=== PATIENT | female | born 1985 | race Caucasian/White ===

== ENCOUNTER 2017-02-11 11:21 | Emergency (ER) | payer BC ==
[2017-02-11] MEDS ORDERED: FOLI1TAB2 (11:33)
[2017-02-11] MEDS ORDERED: VENL75CA47 (11:33)
[2017-02-11] MEDS ORDERED: NAPR500T6 (11:33)
[2017-02-11] MEDS ORDERED: IBUP600T26 PO (11:33)
[2017-02-11] MEDS ORDERED: ARAV20TA (11:33)
[2017-02-11] MEDS ORDERED: PERC5TAB6 PO (13:09)
[2017-02-11] MEDS ORDERED: PERCOCET 5MG/325MG TAB PO ONE (13:15)
[2017-02-11 13:21] VITALS: BP 151/90
== END 2017-02-11 13:32 | disposition home or self-care (01) ==
LOC: M ED 13:00
DX: M06.841 Other specified rheumatoid arthritis, right hand (principal); Z87.891 Personal history of nicotine dependence; Z79.899 Other long term (current) drug therapy

== ENCOUNTER → 2017-06-17 | Outpatient (REF) | payer BC ==
[~2017-06-17] MED LIST: ARAV20TA; FOLI1TAB4; IBUP-1022 PO; NAPR500T6; PERC5TAB12 PO; VENL75CA47
[2017-06-17 16:08] LABS: BASO # 0.1 10^3/uL (0.0-0.2); BASO % 1.4 % (0.0-1.0); EOS # 0.5 10^3/uL (0.0-0.50); EOS % 12.3 % (0.0-3.0); LYMPH # 1.3 10^3/uL (1.5-6.5); LYMPH % 34.9 % (24.0-44.0); MEAN CORPUSCULAR HEMOGLOBIN 31.9 pg (27.0-33.0); MEAN CORPUSCULAR HGB CONC 32.7 g/dl (32.0-36.5); MEAN CORPUSCULAR VOLUME 97.6 fl (80.0-96.0); MONO # 0.5 10^3/uL (0.0-0.8); MONO % 12.3 % (0.0-5.0); NEUTROPHILS # 1.4 10^3/uL (1.8-7.7); NEUTROPHILS % 39.1 % (36.0-66.0); PLATELET COUNT, AUTOMATED 242 10^3/uL (150-450); RED CELL DISTRIBUTION WIDTH 12.6 % (11.5-14.5); WHITE BLOOD COUNT 3.7 10^3/uL (4.0-10.0)
[2017-06-17 16:57] LABS: ALBUMIN/GLOBULIN RATIO 1.14 (1.00-1.93); ALKALINE PHOSPHATASE 69 U/L (45-117); ALT/SGPT 65 U/L (12-78); ANION GAP 7 MEQ/L (8-16); AST/SGOT 77 U/L (15-37); BILIRUBIN,TOTAL 0.4 MG/DL (0.2-1.0); BLOOD UREA NITROGEN 7 MG/DL (7-18); CARBON DIOXIDE LEVEL 28 MEQ/L (21-32); CHLORIDE LEVEL 106 MEQ/L (98-107); CHOLESTEROL LEVEL 253 MG/DL (<200); CREATININE FOR GFR 0.58 MG/DL (0.55-1.02); FREE T4 0.72 NG/DL (0.76-1.46); GLOMERULAR FILTRATION RATE > 60.0 (>60); GLUCOSE, FASTING 76 MG/DL (70-105); POTASSIUM SERUM 4.3 MEQ/L (3.5-5.1); SODIUM LEVEL 141 MEQ/L (136-145); TOTAL PROTEIN 7.5 GM/DL (6.4-8.2); TRIGLYCERIDES LEVEL 47 MG/DL (<150)
== END ==
LOC: M SFHCSACK 09:33
PROVIDERS: ATTEND Physician Assistant
DX: F41.9 Anxiety disorder, unspecified (principal); Z13.29 Encounter for screening for other suspected endocrine disorder; Z13.220 Encounter for screening for lipoid disorders; Z13.21 Encounter for screening for nutritional disorder

== ENCOUNTER → 2017-07-29 | Outpatient (REF) | payer BC ==
[2017-07-29 14:15] LABS: BANDS 1 % (< 11); EOSINOPHILS 6 % (0-5)
[2017-07-29 14:22] LABS: FOLATE 19.4 NG/ML
[2017-07-29 15:07] LABS: BASO # 0.1 10^3/uL (0.0-0.2); BASO % 1.1 % (0.0-1.0); EOS # 0.4 10^3/uL (0.0-0.50); EOS % 6.1 % (0.0-3.0); IMMATURE GRANULOCYTE % 0.3 % (0-0); LYMPH # 1.4 10^3/uL (1.5-4.5); LYMPH % 22.9 % (24.0-44.0); MONO # 0.7 10^3/uL (0.0-0.8); MONO % 10.6 % (0.0-5.0); NEUTROPHILS # 3.7 10^3/uL (1.8-7.7); WHITE BLOOD COUNT 6.2 10^3/uL (4.0-10.0)
== END ==
LOC: M LAB REF 13:21
PROVIDERS: ATTEND Internal Medicine Medical Oncology
DX: D72.819 Decreased white blood cell count, unspecified (principal)

== ENCOUNTER 2017-12-26 01:36 | Emergency (ER) | payer MEDICAID, BC, OTHER ==
[2017-12-26] MEDS: MORPHINE 4 MG/ML 1ML VIAL/SYRINGE (J2270) IV (02:31)
[2017-12-26] MEDS: ONDANSETRON 4MG/2ML VIAL (J2405) IV (02:32)
[2017-12-26] MEDS: METHOCARBAMOL 1,000 MG/10 ML VIAL (J2800) IV (02:39)
[2017-12-26] MEDS: KETOROLAC 30 MG/ML VIAL (J1885) IV (05:06)
[2017-12-26] MEDS ORDERED: NORCO 5/325MG TABLET (BULK FOR ED) PO (06:45)
== END 2017-12-26 06:38 | disposition home or self-care (01) ==
LOC: M ED 01:36
DX: M54.41 Lumbago with sciatica, right side (principal); M06.9 Rheumatoid arthritis, unspecified; F33.9 Major depressive disorder, recurrent, unspecified; F41.9 Anxiety disorder, unspecified; F10.20 Alcohol dependence, uncomplicated; Z79.899 Other long term (current) drug therapy
CPT/HCPCS: J2270

== ENCOUNTER 2020-07-22 13:46 | Emergency (ER) | payer MEDICAID, OTHER ==
[~2020-07-22] VITALS: Ht 165.1 cm; Wt 54.5 kg
[~2020-07-22 13:46] MED LIST changes: +CYCL5TAB PO; +FOLI1TAB11; -FOLI1TAB4; +HYDR-3715 PO; +KETO10TAB PO; -VENL75CA47; +VENL75CA47 PO
[2020-07-22] MEDS ORDERED: LORazepam 2 MG TAB PO PRN (14:00)
[2020-07-22 14:26] LABS: BASO # 0.1 10^3/uL (0.0-0.2); EOS # 0.3 10^3/uL (0.0-0.5); EOS % 3.9 % (0.0-3.0); HEMATOCRIT 37.1 % (36.0-47.0); HEMOGLOBIN 12.4 g/dl (12.0-15.5); LYMPH # 1.1 10^3/uL (1.5-5.0); MEAN CORPUSCULAR HEMOGLOBIN 32.4 pg (27.0-33.0); MEAN CORPUSCULAR HGB CONC 33.4 g/dl (32.0-36.5); MEAN CORPUSCULAR VOLUME 96.9 fl (80.0-96.0); MONO # 0.8 10^3/uL (0.0-0.8); MONO % 11.6 % (0.0-5.0); NEUTROPHILS # 4.5 10^3/uL (1.5-8.5); NEUTROPHILS % 67.1 % (36.0-66.0); PLATELET COUNT, AUTOMATED 174 10^3/uL (150-450); RED BLOOD COUNT 3.83 10^6/uL (4.00-5.40); WHITE BLOOD COUNT 6.7 10^3/uL (4.0-10.0)
[2020-07-22 14:57] LABS: HCG, SERUM QUALITATIVE NEGATIVE (NEGATIVE)
[2020-07-22 15:02] LABS: ACETAMINOPHEN LEVEL < 2.0 UG/ML (10.0-30.0); ALBUMIN 3.5 GM/DL (3.2-5.2); ALT/SGPT 142 U/L (12-78); BILIRUBIN,DIRECT 0.1 MG/DL (0.0-0.2); BILIRUBIN,TOTAL 0.4 MG/DL (0.2-1.0); BLOOD UREA NITROGEN 3 MG/DL (7-18); CALCIUM LEVEL 8.7 MG/DL (8.5-10.1); CARBON DIOXIDE LEVEL 26 MEQ/L (21-32); CHLORIDE LEVEL 102 MEQ/L (98-107); CPK CREATINE PHOSPHOKINASE 85 U/L (26-192); GLOMERULAR FILTRATION RATE > 60.0 (>60); GLUCOSE, FASTING 84 MG/DL (70-100); POTASSIUM SERUM 3.7 MEQ/L (3.5-5.1); SALICYLATE LEVEL 2.1 MG/DL (5.0-30.0); SODIUM LEVEL 137 MEQ/L (136-145); THYROID STIMULATING HORMONE 0.913 uIU/ML (0.358-3.740); TOTAL PROTEIN 8.2 GM/DL (6.4-8.2)
[2020-07-22] MEDS ORDERED: MULTIVITAMIN -ADULT INJECTION 10 ML, THIAMINE INJection 100 MG, FOLIC ACID 1 MG in NS 1... IV ONE (16:00)
[2020-07-22 16:02] LABS: AMPHETAMINES LEVEL URINE NEGATIVE (NEGATIVE); BARBITURATES URINE NEGATIVE (NEGATIVE); BENZODIAZEPINES URINE NEGATIVE (NEGATIVE); CANNABINOIDS URINE POSITIVE (NEGATIVE); COCAINE METABOLITE URINE NEGATIVE (NEGATIVE); METHADONE URINE NEGATIVE (NEGATIVE); OPIATES URINE NEGATIVE (NEGATIVE); PHENCYCLIDINE URINE NEGATIVE (NEGATIVE)
[2020-07-22 16:30] VITALS: BP 113/67
[2020-07-22] MEDS ORDERED: OXAZ10CA3 PO ×2 (16:40→16:59)
[2020-07-22] MEDS ORDERED: ONDA4TAB6 PO (16:40)
[2020-07-22] MEDS ORDERED: OXAZEPAM 10 MG CAP PO ONE (16:45)
[2020-07-22] MEDS ORDERED: THIAMINE 100 MG TAB PO SCH (21:00)
[2020-07-22] MEDS ORDERED: HUMI40KI2 SC (23:57)
[2020-07-23] MEDS ORDERED: MULTIVITAMINS/MINERALS THERAP 1 TAB PO SCH (09:00)
[2020-07-23] MEDS ORDERED: FOLIC ACID 1 MG TAB PO SCH (09:00)
--- NOTE | 2020-07-23 10:17 | ECGEPIP ---
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
== END 2020-07-22 16:59 | disposition home or self-care (01) ==
LOC: M ED 13:46
DX: F10.229 Alcohol dependence with intoxication, unspecified (principal); F17.218 Nicotine dependence, cigarettes, with other nicotine-induced disorders; F12.10 Cannabis abuse, uncomplicated
CPT/HCPCS: 36415; 80048; 80076; 80307; 82550; 84443; 84703; 85025; 93005; 96360; 99284; G0480; J3411

== ENCOUNTER 2020-07-22 21:24 | Inpatient (IN) | payer OTHER ==
[~2020-07-22] VITALS: Ht 165.1 cm; Wt 52.9 kg
[2020-07-22] MEDS: NICOTINE 14 MG/24 HR TRANSDERMAL TD SCH (01:32)
[~2020-07-22 21:24] MED LIST changes: +ONDA4TAB6 PO; +OXAZ10CA3 PO
[2020-07-22] MEDS ORDERED: LORazepam 2 MG/ML VIAL IV STA (21:40)
[2020-07-22] MEDS ORDERED: LORazepam 2 MG/ML VIAL As Ordered ONE (21:42)
[2020-07-22] MEDS ORDERED: LORazepam 2 MG TAB PO PRN (21:45)
[2020-07-22] MEDS ORDERED: NS 1,000 ML IV ONE (21:45)
[2020-07-22] MEDS ORDERED: ONDANSETRON 4MG/2ML VIAL IV ONE (21:45)
[2020-07-22 21:59] LABS: HEMATOCRIT 37.9 % (36.0-47.0); HEMOGLOBIN 12.7 g/dl (12.0-15.5); MEAN CORPUSCULAR HEMOGLOBIN 32.6 pg (27.0-33.0); MEAN CORPUSCULAR HGB CONC 33.5 g/dl (32.0-36.5); MEAN CORPUSCULAR VOLUME 97.4 fl (80.0-96.0); PLATELET COUNT, AUTOMATED 196 10^3/uL (150-450); RED BLOOD COUNT 3.89 10^6/uL (4.00-5.40); WHITE BLOOD COUNT 5.2 10^3/uL (4.0-10.0)
[2020-07-22 22:34] LABS: ACETAMINOPHEN LEVEL < 2.0 UG/ML (10.0-30.0); ALBUMIN 3.4 GM/DL (3.2-5.2); ALT/SGPT 137 U/L (12-78); BILIRUBIN,DIRECT < 0.1 MG/DL (0.0-0.2); BILIRUBIN,TOTAL 0.4 MG/DL (0.2-1.0); BLOOD UREA NITROGEN 6 MG/DL (7-18); CALCIUM LEVEL 8.9 MG/DL (8.5-10.1); CARBON DIOXIDE LEVEL 26 MEQ/L (21-32); CHLORIDE LEVEL 110 MEQ/L (98-107); CPK CREATINE PHOSPHOKINASE 75 U/L (26-192); CREATININE FOR GFR 0.65 MG/DL (0.55-1.30); ETHYL ALCOHOL (ETHANOL) 0.101 % (0.000-0.010); GLOMERULAR FILTRATION RATE > 60.0 (>60); GLUCOSE, FASTING 111 MG/DL (70-100); MAGNESIUM LEVEL 1.9 MG/DL (1.8-2.4); POTASSIUM SERUM 3.6 MEQ/L (3.5-5.1); SALICYLATE LEVEL < 1.7 MG/DL (5.0-30.0); SODIUM LEVEL 143 MEQ/L (136-145); TOTAL PROTEIN 8.2 GM/DL (6.4-8.2)
[2020-07-22] MEDS ORDERED: MULTIVITAMIN -ADULT INJECTION 10 ML, THIAMINE INJection 100 MG, FOLIC ACID 1 MG in NS 1... IV ONE (23:30)
[2020-07-22] MEDS ORDERED: flumazeniL 0.5 MG/5 ML VIAL IV PRN (23:30)
[2020-07-22] MEDS ORDERED: ONDANSETRON 4MG/2ML VIAL IV PRN (23:45)
[2020-07-22] MEDS ORDERED: HUMI40KI2 SC (23:57)
--- NOTE | 2020-07-23 00:08 | HPEPDOC ---
[facility] Medical History & Physical Date of Admission Jul 22, 2020 Date of Service: Jul 22, 2020 History and Physical CHIEF COMPLAINT: Alcohol withdrawal HISTORY OF PRESENT ILLNESS: 35-year-old female with history of alcohol abuse, 13 beers a day and some shot, alcohol withdrawal, tobacco abuse one pack a day of smoking, rheumatoid arthritis , signed out AGAINST MEDICAL ADVICE from the emergency room earlier today, now returns with "shakes" last drink at 1 PM today . She complains of tremors twitches, disorientation and seeing stars, nausea, vomiting 2 episodes, slept for 2 hours at home and awakened with worsening t remors. . She denies any paresthesias or creepy crawly sensations .No fever, chills, abdominal pain, no cough or shortness of breath. No history of alcohol withdrawal seizures. no prior attempts for alcohol rehabilitation. Hospice was called to admit for alcohol withdrawal. 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 13 beers and some shots a day. Tobacco abuse one pack a day. FAMILY HISTORY: Mother, rheumatoid arthritis, hypertension, age 54. Father alive and healthy. No medical problems, age 60 ALLERGIES: Please see below. REVIEW OF SYSTEMS: Positive findings on HPI. 10 point review of system otherwise negative HOME MEDICATIONS: Please see below. PHYSICAL EXAMINATION: VITAL SIGNS: See below GENERAL APPEARANCE: Anicteric, no jaundice, awake, alert, oriented, answering questions appropriately. No respiratory distress. No conversational dyspnea. No use of respiratory accessory muscles HEENT: Anicteric, no jaundice. Pupils equally round, reactive to light accommodation. Extra ocular muscles intact. No cervical lymphadenopathy, thyromegaly or jugular venous distention CARDIOVASCULAR: S1, S2, sinus rhythm, no murmurs, rubs or gallops LUNGS: Air entry is equal bilaterally. No kyphoscoliosis. No adventitious breath sounds clear to auscultation bilaterally ABDOMEN: Positive bowel sounds 4 quadrants, soft, nontender, nondistended. No hepatosplenomegaly. No rebound or guarding EXTREMITIES: No cyanosis, clubbing or pitting edema NEUROLOGICAL: Tremulous. LABORATORY DATA: See below. MICROBIOLOGY: Please see below. ASSESSMENT/PLAN: Alcohol withdrawal -Telemetry monitoring. Admit as an inpatient for 2 midnights. 1 dose IV Valium 2 mg in the ER . Serax 30 mg every 6 as needed for withdrawal symptoms. Monitor for seizure activity. No signs of aspiration at this time. May continue on a regular diet, multivitamin, thiamine and folic acid supplements. Banana bag 1 L tonight Alcohol abuse and dependence -Outpatient alcohol rehabilitation Tobacco abuse -No documented history of COPD or emphysema. Nicotine patch. 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 Continue on Effexor Sciatica/chronic low back pain -When necessary pain meds. PCP to refer her to pain management. DVT prophylaxis. Lovenox Diet regular CODE STATUS full code Vital Signs Vital Signs Date Time Temp Pulse Resp B/P (MAP) Pulse Ox O2 Delivery O2 Flow Rate FiO2 07/22/20 23:15 133/87 (102) 07/22/20 23:09 94 18 98 Room Air 07/22/20 21:25 96.8 Laboratory Data Labs 24H Laboratory Tests 2 07/22/20 21:47: Nucleated Red Blood Cells % (auto) 0.0, Anion Gap 7L, Glomerular Filtration Rate > 60.0, Calcium Level 8.9, Magnesium Level 1.9, Total Bilirubin 0.4, Direct Bilirubin < 0.1, Aspartate Amino Transf (AST/SGOT) 251H, Alanine Aminotransferase (ALT/SGPT) 137H, Alkaline Phosphatase 138H, Total Creatine Kin ase 75, Total Protein 8.2, Albumin 3.4, Albumin/Globulin Ratio 0.7L, Thyroid Stimulating Hormone (TSH) 1.410, Salicylates Level < 1.7L, Acetaminophen Level < 2.0L, Ethyl Alcohol Level 0.101H CBC/BMP Laboratory Tests 07/22/20 21:47 Home Medications Scheduled Adalimumab (Humira Pen) 40 Mg/0.8 Ml Pen.ij.kit, 40 MG SC ASDIRECTED Venlafaxine HCl (Venlafaxine HCl ER) 75 Mg Capcr, 75 MG PO DAILY Allergies Coded Allergies: No Known Allergies (Unverified , 02/11/17) A-FIB/CHADSVASC A-FIB History Current/History of A-Fib/PAF?: No Current PO Anticoag Therapy: No Age/Risk Factor Scoring CHADSVASC: CHADSVASC Response (Comments) Value Age Risk Factor Age < 65 years old 0 Gender Risk Factor Female 1 Hx of CHF No 0 Hx of HTN No 0 Hx of Stroke/TIA/or VTE No 0 Hx of Diabetes No 0 Hx of Vascular Disease No 0 Total 1 Treatment Treatment ordered: NONE BRITTANY VILLAFUERTE MD Jul 22, 2020 23:39
[2020-07-23] MEDS ORDERED: diazePAM 10MG/2ML SYRINGE (J3360 PER 5MG) IV ONE (00:15)
[2020-07-23] MEDS ORDERED: NICOTINE 14 MG/24 HR TRANSDERMAL TD ONE (01:00)
[2020-07-23] MEDS ORDERED: ENOXAPARIN 40MG/0.4ML SYRINGE (J1650 PER 10MG) SC ONE (01:00)
[2020-07-23] MEDS: OXAZEPAM 15 MG CAP PO PRN ×3 (04:13→17:57)
[2020-07-23 05:05] LABS: AMPHETAMINES LEVEL URINE NEGATIVE (NEGATIVE); BARBITURATES URINE NEGATIVE (NEGATIVE); BENZODIAZEPINES URINE NEGATIVE (NEGATIVE); CANNABINOIDS URINE POSITIVE (NEGATIVE); COCAINE METABOLITE URINE NEGATIVE (NEGATIVE); METHADONE URINE NEGATIVE (NEGATIVE); OPIATES URINE NEGATIVE (NEGATIVE); PHENCYCLIDINE URINE NEGATIVE (NEGATIVE)
[2020-07-23 07:25] LABS: HEMATOCRIT 34.9 % (36.0-47.0); HEMOGLOBIN 11.4 g/dl (12.0-15.5); MEAN CORPUSCULAR HEMOGLOBIN 32.7 pg (27.0-33.0); MEAN CORPUSCULAR HGB CONC 32.7 g/dl (32.0-36.5); PLATELET COUNT, AUTOMATED 146 10^3/uL (150-450); RED BLOOD COUNT 3.49 10^6/uL (4.00-5.40); WHITE BLOOD COUNT 5.7 10^3/uL (4.0-10.0)
[2020-07-23 07:42] LABS: BLOOD UREA NITROGEN 6 MG/DL (7-18); CALCIUM LEVEL 7.9 MG/DL (8.5-10.1); CARBON DIOXIDE LEVEL 26 MEQ/L (21-32); CHLORIDE LEVEL 104 MEQ/L (98-107); CREATININE FOR GFR 0.48 MG/DL (0.55-1.30); GLOMERULAR FILTRATION RATE > 60.0 (>60); GLUCOSE, FASTING 72 MG/DL (70-100); POTASSIUM SERUM 3.3 MEQ/L (3.5-5.1); SODIUM LEVEL 137 MEQ/L (136-145)
[2020-07-23] MEDS: NICOTINE 14 MG/24 HR TRANSDERMAL TD SCH (09:00)
[2020-07-23 09:30] VITALS: BP 157/98
[2020-07-23] MEDS: FOLIC ACID 1 MG TAB PO SCH (11:08)
[2020-07-23] MEDS: MULTIVITAMINS/MINERALS THERAP 1 TAB PO SCH (11:09)
[2020-07-23 11:10] VITALS: BP 116/81
--- NOTE | 2020-07-23 11:41 | IPNPDOC ---
Text Note Date of Service The patient was seen on 07/23/20. NOTE Subjective: Patient seen and examined at bedside. No acute overnight events. Patient has no new medical complaints this morning. Denies any withdrawal symptoms. States she has gone through alcohol withdrawal before, in an inpatient setting, in [place]. Denies any history of withdrawal seizures. Objective: General: NAD, lying comfortably in bed, pleasant HEENT: NC/AT, EOMI, PERRL Lungs: CTA B/L Heart: +S1S2, RRR Abd: soft, NT, +BS Ext: no edema A/P: 35F with PMHx EtOH abuse, nicotine abuse, RA, SILVINO, Raynaud's syndrome, admitted for alcohol withdrawal, was here previously and left AMA. Admits to 13 beers/day with unknown number of 'shots'. Last drink at 1 PM on day of admission. On arrival complained of tremors twitches, disorientation and seeing stars, nausea, vomiting 2 episodes. 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 Continue on Effexor #Sciatica/chronic low back pain -When necessary pain meds. PCP to refer her to pain management. #DVT prophylaxis. Lovenox VS,Fishbone, I+O VS, Fishbone, I+O Laboratory Tests 07/22/20 21:47 07/23/20 07:04 Vital Signs Date Time Temp Pulse Resp B/P (MAP) Pulse Ox O2 Delivery O2 Flow Rate FiO2 07/23/20 11:10 78 116/81 07/23/20 09:30 97.8 19 99 Room Air I&O- Last 24 Hours up to 6 AM 07/23/20 05:59 Intake Total 1000 ml Balance 1000 ml LES ARCOS MD Jul 23, 2020 11:41
[2020-07-23 11:58] LABS: MAGNESIUM LEVEL 1.7 MG/DL (1.8-2.4)
[2020-07-23] MEDS ORDERED: POTASSIUM CHLORIDE 10 MEQ SR TABLET PO ONE (12:00)
[2020-07-23] MEDS: THIAMINE 200MG/2ML VIAL (J3411 PER 100MG) IV SCH (12:29)
[2020-07-23 13:25] VITALS: BP 135/91
[2020-07-23 16:00] VITALS: BP 130/77
[2020-07-23 20:00] VITALS: BP_SYST 120; BP_SYST 122; BP_DIAS 72; BP_DIAS 78
[2020-07-23] MEDS: ENOXAPARIN 40MG/0.4ML SYRINGE (J1650 PER 10MG) SC SCH (20:26)
[2020-07-23 23:59] VITALS: BP 125/78
[2020-07-24] VITALS (7 sets, daily range): BP systolic 118–135; BP diastolic 75–92
[2020-07-24] MEDS: OXAZEPAM 15 MG CAP PO PRN ×2 (00:07→13:23)
[2020-07-24 06:14] LABS: HEMATOCRIT 39.5 % (36.0-47.0); HEMOGLOBIN 12.8 g/dl (12.0-15.5); MEAN CORPUSCULAR HEMOGLOBIN 32.2 pg (27.0-33.0); MEAN CORPUSCULAR HGB CONC 32.4 g/dl (32.0-36.5); MEAN CORPUSCULAR VOLUME 99.5 fl (80.0-96.0); PLATELET COUNT, AUTOMATED 162 10^3/uL (150-450); RED BLOOD COUNT 3.97 10^6/uL (4.00-5.40); WHITE BLOOD COUNT 4.8 10^3/uL (4.0-10.0)
[2020-07-24 06:59] LABS: ALT/SGPT 88 U/L (12-78); BILIRUBIN,DIRECT 0.2 MG/DL (0.0-0.2); BILIRUBIN,TOTAL 0.8 MG/DL (0.2-1.0); BLOOD UREA NITROGEN 6 MG/DL (7-18); CARBON DIOXIDE LEVEL 25 MEQ/L (21-32); CHLORIDE LEVEL 103 MEQ/L (98-107); CREATININE FOR GFR 0.52 MG/DL (0.55-1.30); GLOMERULAR FILTRATION RATE > 60.0 (>60); GLUCOSE, FASTING 80 MG/DL (70-100); POTASSIUM SERUM 3.3 MEQ/L (3.5-5.1); SODIUM LEVEL 136 MEQ/L (136-145); TOTAL PROTEIN 8.4 GM/DL (6.4-8.2)
[2020-07-24] MEDS ORDERED: POTASSIUM CHLORIDE 10 MEQ SR TABLET PO ONE (07:30)
[2020-07-24 07:57] LABS: MAGNESIUM LEVEL 2.1 MG/DL (1.8-2.4)
[2020-07-24] MEDS ORDERED: LORazepam 2 MG/ML VIAL IV ONE (08:00)
[2020-07-24] MEDS: FOLIC ACID 1 MG TAB PO SCH (08:40)
[2020-07-24] MEDS: MULTIVITAMINS/MINERALS THERAP 1 TAB PO SCH (08:40)
[2020-07-24] MEDS: NICOTINE 14 MG/24 HR TRANSDERMAL TD SCH ×2 (08:41→08:44)
[2020-07-24] MEDS: THIAMINE 200MG/2ML VIAL (J3411 PER 100MG) IV SCH (08:59)
[2020-07-24] MEDS ORDERED: LORazepam 2 MG/ML VIAL IV PRN (09:15)
--- NOTE | 2020-07-24 09:16 | IPNPDOC ---
Text Note Date of Service The patient was seen on 07/24/20. NOTE Subjective: Patient seen and examined at bedside. No acute overnight events. Patient notes some tremors and general malaise this morning. Objective: General: NAD, lying comfortably in bed, pleasant, mild tremors HEENT: NC/AT, EOMI, PERRL Lungs: CTA B/L Heart: +S1S2, RRR Abd: soft, NT, +BS Ext: no edema A/P: 35F with PMHx EtOH abuse, nicotine abuse, RA, SILVINO, Raynaud's syndrome, admitted for alcohol withdrawal, was here previously and left AMA. Admits to 13 beers/day with unknown number of 'shots'. Last drink at 1 PM on day of admission. On arrival complained of tremors twitches, disorientation and seeing stars, nausea, vomiting 2 episodes. 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 Continue on Effexor #Sciatica/chronic low back pain -When necessary pain meds. PCP to refer her to pain management. #DVT prophylaxis. Lovenox VS,Fishbone, I+O VS, Fishbone, I+O Laboratory Tests 07/24/20 05:55 Vital Signs Date Time Temp Pulse Resp B/P (MAP) Pulse Ox O2 Delivery O2 Flow Rate FiO2 07/24/20 08:34 79 134/88 07/24/20 08:00 96.8 17 97 Room Air I&O- Last 24 Hours up to 6 AM 07/24/20 06:00 Intake Total 1611.2 ml Output Total 850 ml Balance 761.2 ml LES ARCOS MD Jul 24, 2020 09:15
[2020-07-24] MEDS: ENOXAPARIN 40MG/0.4ML SYRINGE (J1650 PER 10MG) SC SCH (21:16)
[2020-07-25] VITALS: BP_SYST 131; BP_SYST 134; BP_DIAS 82; BP_DIAS 92
[2020-07-25] MEDS: OXAZEPAM 15 MG CAP PO PRN (00:39)
[2020-07-25 04:00] VITALS: BP_SYST 117; BP_SYST 124; BP_DIAS 76; BP_DIAS 82
[2020-07-25 06:09] LABS: HEMATOCRIT 40.1 % (36.0-47.0); HEMOGLOBIN 13.4 g/dl (12.0-15.5); MEAN CORPUSCULAR HEMOGLOBIN 33.3 pg (27.0-33.0); MEAN CORPUSCULAR HGB CONC 33.4 g/dl (32.0-36.5); MEAN CORPUSCULAR VOLUME 99.8 fl (80.0-96.0); PLATELET COUNT, AUTOMATED 176 10^3/uL (150-450); RED BLOOD COUNT 4.02 10^6/uL (4.00-5.40); WHITE BLOOD COUNT 5.5 10^3/uL (4.0-10.0)
[2020-07-25 06:31] LABS: BLOOD UREA NITROGEN 6 MG/DL (7-18); CALCIUM LEVEL 8.8 MG/DL (8.5-10.1); CARBON DIOXIDE LEVEL 24 MEQ/L (21-32); CHLORIDE LEVEL 105 MEQ/L (98-107); CREATININE FOR GFR 0.55 MG/DL (0.55-1.30); GLOMERULAR FILTRATION RATE > 60.0 (>60); GLUCOSE, FASTING 90 MG/DL (70-100); POTASSIUM SERUM 3.6 MEQ/L (3.5-5.1); SODIUM LEVEL 135 MEQ/L (136-145)
[2020-07-25 07:52] VITALS: BP 124/82
[2020-07-25 08:00] VITALS: BP 124/82
[2020-07-25] MEDS: THIAMINE 200MG/2ML VIAL (J3411 PER 100MG) IV SCH (09:00)
[2020-07-25] MEDS: NICOTINE 14 MG/24 HR TRANSDERMAL TD SCH (09:00)
[2020-07-25] MEDS ORDERED: LORazepam 2 MG/ML VIAL IV STA (09:12)
[2020-07-25] MEDS ORDERED: THIA100T7 PO (09:16)
[2020-07-25] MEDS ORDERED: NICO14PA TD (09:16)
[2020-07-25] MEDS ORDERED: OXAZ30CA2 PO (09:16)
[2020-07-25] MEDS ORDERED: FOLI1TAB11 PO (09:16)
[2020-07-25] MEDS: FOLIC ACID 1 MG TAB PO SCH (09:27)
[2020-07-25] MEDS: MULTIVITAMINS/MINERALS THERAP 1 TAB PO SCH (09:27)
[2020-07-25] MEDS ORDERED: diazePAM 2 MG TAB PO ONE (09:30)
== END 2020-07-25 11:37 | DRG 775 ==
LOC: M ED 21:24 → M ED INP 23:29 → ENRESERV 07-23 07:00 → M MS5PR 07-23 09:45 → M PCU 07-23 13:41
PROVIDERS: ADMIT General Practice; ATTEND General Practice
DX: F10.239 Alcohol dependence with withdrawal, unspecified (principal); F41.1 Generalized anxiety disorder; Z72.0 Tobacco use; M06.9 Rheumatoid arthritis, unspecified; F17.200 Nicotine dependence, unspecified, uncomplicated; F12.90 Cannabis use, unspecified, uncomplicated; M54.5 Low back pain

== ENCOUNTER → 2020-08-09 | Outpatient (CLI) | payer OTHER ==
[~2020-08-09] MED LIST changes: +FOLI1TAB11 PO; +HUMI40KI2 SC; +NICO14PA TD; +OXAZ30CA2 PO; +THIA100T7 PO
== END ==
LOC: M OUTALCOH 08:18
PROVIDERS: ATTEND Psychiatry & Neurology Addiction Medicine
DX: Z13.39 Encounter for screening examination for other mental health and behavioral disorders (principal); F10.20 Alcohol dependence, uncomplicated

== ENCOUNTER → 2020-09-06 | Outpatient (RCR) | payer OTHER | LOC: M OUTALCOH 08-27 10:00 | PROVIDERS: ATTEND Psychiatry & Neurology Addiction Medicine | DX: F10.20 Alcohol dependence, uncomplicated (principal); F17.200 Nicotine dependence, unspecified, uncomplicated ==

== ENCOUNTER 2020-10-04 10:00 | Outpatient (RCR) | payer OTHER | END 2020-10-07 | LOC: M OUTALCOH 10:00 | PROVIDERS: ATTEND Psychiatry & Neurology Addiction Medicine | DX: F10.20 Alcohol dependence, uncomplicated (principal); F17.200 Nicotine dependence, unspecified, uncomplicated ==

== ENCOUNTER 2020-10-18 10:00 | Outpatient (RCR) | payer OTHER | END 2020-11-04 | LOC: M OUTALCOH 10:00 | PROVIDERS: ATTEND Psychiatry & Neurology Addiction Medicine | DX: F10.20 Alcohol dependence, uncomplicated (principal); F17.200 Nicotine dependence, unspecified, uncomplicated ==

== ENCOUNTER 2020-11-26 13:26 | Outpatient (RCR) | payer OTHER | END 2020-12-05 | LOC: M OUTALCOH 13:26 | PROVIDERS: ATTEND Psychiatry & Neurology Psychiatry | DX: F10.20 Alcohol dependence, uncomplicated (principal); F17.200 Nicotine dependence, unspecified, uncomplicated ==

== ENCOUNTER → 2021-02-22 | Outpatient (REF) | payer OTHER | LOC: M SFHCWAGY 17:24 | PROVIDERS: ATTEND Specialist | DX: Z12.4 Encounter for screening for malignant neoplasm of cervix (principal) ==

== ENCOUNTER → 2021-04-22 | Outpatient (REF) | payer OTHER | LOC: M SFHCWAGY 19:00 | PROVIDERS: ATTEND Specialist | DX: R87.610 Atypical squamous cells of undetermined significance on cytologic smear of cervix (ASC-US) (principal) ==

== ENCOUNTER → 2021-08-22 | Outpatient (CLI) | payer OTHER | LOC: M LABSMTC 10:16 | PROVIDERS: ATTEND Family Medicine | DX: Z20.822 Contact with and (suspected) exposure to COVID-19 (principal) | CPT/HCPCS: C9803; U0003 ==

== ENCOUNTER → 2021-10-02 | Outpatient (REF) | payer OTHER ==
[2021-10-02 12:53] LABS: BASO # 0.1 10^3/uL (0.0-0.2); BASO % 0.8 % (0.0-1.0); EOS # 0.6 10^3/uL (0.0-0.5); EOS % 7.5 % (0.0-3.0); HEMATOCRIT 39.5 % (36.0-47.0); HEMOGLOBIN 12.7 g/dl (12.0-15.5); LYMPH % 26.6 % (24.0-44.0); MEAN CORPUSCULAR HEMOGLOBIN 30.8 pg (27.0-33.0); MEAN CORPUSCULAR HGB CONC 32.2 g/dl (32.0-36.5); MEAN CORPUSCULAR VOLUME 95.9 fl (80.0-96.0); MONO # 0.5 10^3/uL (0.0-0.8); MONO % 6.2 % (2.0-8.0); NEUTROPHILS # 4.4 10^3/uL (1.5-8.5); NEUTROPHILS % 58.8 % (36.0-66.0); PLATELET COUNT, AUTOMATED 272 10^3/uL (150-450); RED BLOOD COUNT 4.12 10^6/uL (4.00-5.40); WHITE BLOOD COUNT 7.6 10^3/uL (4.0-10.0)
[2021-10-02 14:16] LABS: ALT/SGPT 14 U/L (12-78); BILIRUBIN,TOTAL 0.2 MG/DL (0.2-1.0); BLOOD UREA NITROGEN 7 MG/DL (7-18); CARBON DIOXIDE LEVEL 28 MEQ/L (21-32); CHLORIDE LEVEL 107 MEQ/L (98-107); CREATININE FOR GFR 0.62 MG/DL (0.55-1.30); GLOMERULAR FILTRATION RATE > 60.0 (>60); GLUCOSE, FASTING 81 MG/DL (70-100); POTASSIUM SERUM 4.4 MEQ/L (3.5-5.1); SODIUM LEVEL 140 MEQ/L (136-145); TOTAL PROTEIN 7.3 GM/DL (6.4-8.2)
[2021-10-02 14:19] LABS: ERYTHROCYTE SEDIMENTATION RATE 12 mm/hr (0-20)
== END ==
LOC: M SFHCRHEU 08:51
PROVIDERS: ATTEND Internal Medicine Rheumatology
DX: M06.09 Rheumatoid arthritis without rheumatoid factor, multiple sites (principal); I73.00 Raynaud's syndrome without gangrene; Z72.0 Tobacco use

== ENCOUNTER → 2021-10-07 | Outpatient (CLI) | payer OTHER | LOC: M ADAMS 14:23 | PROVIDERS: ATTEND Internal Medicine Rheumatology | DX: M06.09 Rheumatoid arthritis without rheumatoid factor, multiple sites (principal); I73.00 Raynaud's syndrome without gangrene; M19.071 Primary osteoarthritis, right ankle and foot; M19.072 Primary osteoarthritis, left ankle and foot ==

== ENCOUNTER 2021-11-26 09:14 | Emergency (ER) | payer OTHER ==
[~2021-11-26] VITALS: Ht 165.1 cm; Wt 54.0 kg
[2021-11-26] MEDS ORDERED: TRAZ-186 (09:29)
[2021-11-26 10:00] LABS: BASO # 0.1 10^3/uL (0.0-0.2); EOS # 0.5 10^3/uL (0.0-0.5); EOS % 7.1 % (0.0-3.0); HEMATOCRIT 37.6 % (36.0-47.0); HEMOGLOBIN 12.7 g/dl (12.0-15.5); LYMPH # 1.5 10^3/uL (1.5-5.0); LYMPH % 23.5 % (24.0-44.0); MEAN CORPUSCULAR HEMOGLOBIN 31.9 pg (27.0-33.0); MEAN CORPUSCULAR HGB CONC 33.8 g/dl (32.0-36.5); MEAN CORPUSCULAR VOLUME 94.5 fl (80.0-96.0); MONO # 0.4 10^3/uL (0.0-0.8); MONO % 6.8 % (2.0-8.0); NEUTROPHILS # 3.9 10^3/uL (1.5-8.5); NEUTROPHILS % 61.4 % (36.0-66.0); PLATELET COUNT, AUTOMATED 247 10^3/uL (150-450); RED BLOOD COUNT 3.98 10^6/uL (4.00-5.40); WHITE BLOOD COUNT 6.3 10^3/uL (4.0-10.0)
[2021-11-26 11:59] VITALS: BP 121/78
[2021-11-26 12:38] LABS: GC DNA AMPLIFICATION NEGATIVE (NEGATIVE)
== END 2021-11-26 12:14 | disposition home or self-care (01) ==
LOC: M ED 09:14
DX: O20.0 Threatened abortion (principal); O99.341 Other mental disorders complicating pregnancy, first trimester; Z79.899 Other long term (current) drug therapy

== ENCOUNTER → 2021-11-28 | Outpatient (CLI) | payer OTHER ==
[~2021-11-28] MED LIST changes: +TRAZ-186
== END ==
LOC: M LAB 08:40
PROVIDERS: ATTEND Physician Assistant Medical
DX: O20.0 Threatened abortion (principal)

== ENCOUNTER → 2021-12-02 | Outpatient (CLI) | payer OTHER | LOC: M LAB 08:45 | PROVIDERS: ATTEND Physician Assistant Medical | DX: O20.0 Threatened abortion (principal); Z3A.01 Less than 8 weeks gestation of pregnancy ==

== ENCOUNTER → 2021-12-18 | Outpatient (CLI) | payer OTHER ==
[2021-12-18 13:43] LABS: BASO # 0.1 10^3/uL (0.0-0.2); BASO % 0.6 % (0.0-1.0); EOS # 0.4 10^3/uL (0.0-0.5); HEMATOCRIT 40.4 % (36.0-47.0); HEMOGLOBIN 13.7 g/dl (12.0-15.5); LYMPH # 1.8 10^3/uL (1.5-5.0); LYMPH % 20.3 % (24.0-44.0); MEAN CORPUSCULAR HEMOGLOBIN 32.5 pg (27.0-33.0); MEAN CORPUSCULAR HGB CONC 33.9 g/dl (32.0-36.5); MONO # 0.6 10^3/uL (0.0-0.8); MONO % 6.4 % (2.0-8.0); NEUTROPHILS # 6.1 10^3/uL (1.5-8.5); NEUTROPHILS % 68.4 % (36.0-66.0); PLATELET COUNT, AUTOMATED 257 10^3/uL (150-450); RED BLOOD COUNT 4.21 10^6/uL (4.00-5.40); WHITE BLOOD COUNT 8.9 10^3/uL (4.0-10.0)
[2021-12-18 14:09] LABS: ERYTHROCYTE SEDIMENTATION RATE 9 mm/hr (0-20)
[2021-12-18 14:11] LABS: ALBUMIN 4.1 GM/DL (3.2-5.2); ALT/SGPT 18 U/L (12-78); BILIRUBIN,TOTAL 0.3 MG/DL (0.2-1.0); BLOOD UREA NITROGEN 4 MG/DL (7-18); CALCIUM LEVEL 9.6 MG/DL (8.5-10.1); CARBON DIOXIDE LEVEL 28 MEQ/L (21-32); CHLORIDE LEVEL 107 MEQ/L (98-107); CREATININE FOR GFR 0.59 MG/DL (0.55-1.30); GLOMERULAR FILTRATION RATE > 60.0 (>60); GLUCOSE, FASTING 88 MG/DL (70-100); POTASSIUM SERUM 4.3 MEQ/L (3.5-5.1); SODIUM LEVEL 140 MEQ/L (136-145); TOTAL PROTEIN 7.4 GM/DL (6.4-8.2)
== END ==
LOC: M ADAMS 11:19
PROVIDERS: ATTEND Internal Medicine Rheumatology
DX: M06.09 Rheumatoid arthritis without rheumatoid factor, multiple sites (principal); I73.00 Raynaud's syndrome without gangrene; Z72.0 Tobacco use; Z15.89 Genetic susceptibility to other disease; M47.812 Spondylosis without myelopathy or radiculopathy, cervical region; M25.78 Osteophyte, vertebrae; M25.851 Other specified joint disorders, right hip; M25.852 Other specified joint disorders, left hip

== ENCOUNTER → 2022-04-08 | Outpatient (REF) | payer OTHER ==
[2022-04-08 12:44] LABS: BASO # 0.1 10^3/uL (0.0-0.2); BASO % 1.3 % (0.0-1.0); EOS # 0.7 10^3/uL (0.0-0.5); EOS % 10.3 % (0.0-3.0); HEMOGLOBIN 13.1 g/dl (12.0-15.5); LYMPH # 1.8 10^3/uL (1.5-5.0); LYMPH % 27.8 % (24.0-44.0); MEAN CORPUSCULAR HEMOGLOBIN 31.6 pg (27.0-33.0); MEAN CORPUSCULAR HGB CONC 32.8 g/dl (32.0-36.5); MEAN CORPUSCULAR VOLUME 96.4 fl (80.0-96.0); MONO # 0.5 10^3/uL (0.0-0.8); MONO % 7.9 % (2.0-8.0); NEUTROPHILS # 3.3 10^3/uL (1.5-8.5); NEUTROPHILS % 52.4 % (36.0-66.0); PLATELET COUNT, AUTOMATED 224 10^3/uL (150-450); RED BLOOD COUNT 4.15 10^6/uL (4.00-5.40); WHITE BLOOD COUNT 6.3 10^3/uL (4.0-10.0)
[2022-04-08 13:15] LABS: ALBUMIN 3.8 GM/DL (3.2-5.2); ALT/SGPT 15 U/L (12-78); BILIRUBIN,TOTAL 0.2 MG/DL (0.2-1.0); BLOOD UREA NITROGEN 10 MG/DL (7-18); CALCIUM LEVEL 9.4 MG/DL (8.5-10.1); CARBON DIOXIDE LEVEL 25 MEQ/L (21-32); CHLORIDE LEVEL 110 MEQ/L (98-107); CREATININE FOR GFR 0.67 MG/DL (0.55-1.30); GLOMERULAR FILTRATION RATE > 60.0 (>60); GLUCOSE, FASTING 75 MG/DL (70-100); POTASSIUM SERUM 4.2 MEQ/L (3.5-5.1); SODIUM LEVEL 141 MEQ/L (136-145); TOTAL PROTEIN 6.6 GM/DL (6.4-8.2)
[2022-04-08 14:17] LABS: ERYTHROCYTE SEDIMENTATION RATE 7 mm/hr (0-20)
== END ==
LOC: M SFHCADAM 09:57
PROVIDERS: ATTEND Internal Medicine Rheumatology
DX: M06.09 Rheumatoid arthritis without rheumatoid factor, multiple sites (principal); I73.00 Raynaud's syndrome without gangrene; Z72.0 Tobacco use; Z15.89 Genetic susceptibility to other disease

== ENCOUNTER → 2022-06-03 | Outpatient (CLI) | payer OTHER | LOC: M LABDRWAD 11:30 | PROVIDERS: ATTEND Advanced Practice Midwife | DX: O20.0 Threatened abortion (principal); R30.0 Dysuria ==

== ENCOUNTER → 2022-06-05 | Outpatient (CLI) | payer OTHER | LOC: M WUC 13:08 | PROVIDERS: ATTEND Advanced Practice Midwife | DX: O20.0 Threatened abortion (principal) ==

== ENCOUNTER → 2022-06-12 | Outpatient (CLI) | payer OTHER | LOC: M WHC 12:21 | PROVIDERS: ATTEND Advanced Practice Midwife | DX: O20.9 Hemorrhage in early pregnancy, unspecified (principal); Z3A.01 Less than 8 weeks gestation of pregnancy ==

== ENCOUNTER → 2022-07-14 | Outpatient (CLI) | payer OTHER | LOC: M PLALAB 13:26 | PROVIDERS: ATTEND Obstetrics & Gynecology | DX: Z34.91 Encounter for supervision of normal pregnancy, unspecified, first trimester (principal) ==

== ENCOUNTER → 2022-08-20 | Outpatient (CLI) | payer OTHER ==
[2022-08-20 17:13] LABS: HEMATOCRIT 33.9 % (36.0-47.0); MEAN CORPUSCULAR HEMOGLOBIN 31.8 pg (27.0-33.0); MEAN CORPUSCULAR HGB CONC 32.4 g/dl (32.0-36.5); PLATELET COUNT, AUTOMATED 230 10^3/uL (150-450); RED BLOOD COUNT 3.46 10^6/uL (4.00-5.40); WHITE BLOOD COUNT 10.2 10^3/uL (4.0-10.0)
[2022-08-20 17:17] LABS: HIV 1&2 SCREEN CENTAUR NEGATIVE (NEGATIVE)
[2022-08-20 17:24] LABS: HEPATITIS C VIRUS ABY INDEX 0.1 INDEX (<0.8)
[2022-08-20 18:32] LABS: GC DNA AMPLIFICATION NEGATIVE (NEGATIVE)
== END ==
LOC: M LABDRWAD 14:44
PROVIDERS: ATTEND Obstetrics & Gynecology
DX: Z36.89 Encounter for other specified antenatal screening (principal); Z3A.00 Weeks of gestation of pregnancy not specified

== ENCOUNTER → 2022-08-28 | Outpatient (CLI) | payer OTHER | LOC: M WHC 13:26 | PROVIDERS: ATTEND Obstetrics & Gynecology | DX: Z36.89 Encounter for other specified antenatal screening (principal); Z3A.20 20 weeks gestation of pregnancy ==

== ENCOUNTER → 2022-10-14 | Outpatient (CLI) | payer OTHER ==
[2022-10-14 16:00] LABS: HEMATOCRIT 32.8 % (36.0-47.0); HEMOGLOBIN 10.6 g/dl (12.0-15.5); MEAN CORPUSCULAR HEMOGLOBIN 31.7 pg (27.0-33.0); MEAN CORPUSCULAR HGB CONC 32.3 g/dl (32.0-36.5); MEAN CORPUSCULAR VOLUME 98.2 fl (80.0-96.0); PLATELET COUNT, AUTOMATED 214 10^3/uL (150-450); RED BLOOD COUNT 3.34 10^6/uL (4.00-5.40); WHITE BLOOD COUNT 11.2 10^3/uL (4.0-10.0)
[2022-10-14 17:44] LABS: GC DNA AMPLIFICATION NEGATIVE (NEGATIVE)
== END ==
LOC: M PLALAB 10:46
PROVIDERS: ATTEND Specialist
DX: Z34.02 Encounter for supervision of normal first pregnancy, second trimester (principal); Z36.89 Encounter for other specified antenatal screening

== ENCOUNTER → 2022-11-20 | Outpatient (CLI) | payer OTHER | LOC: M WHC 14:29 | PROVIDERS: ATTEND Specialist | DX: Z36.89 Encounter for other specified antenatal screening (principal); Z3A.31 31 weeks gestation of pregnancy ==

== ENCOUNTER 2022-12-09 11:35 | Emergency (ER) | payer OTHER ==
[~2022-12-09] VITALS: Ht 165.1 cm; Wt 67.9 kg
[2022-12-09 11:36] VITALS: BP 132/76
== END 2022-12-09 16:31 | disposition admitted as inpatient to this hospital (09) ==
LOC: M ED 11:35
DX: R06.02 Shortness of breath (principal)

== ENCOUNTER 2022-12-09 12:13 | Outpatient (CLI) | payer OTHER ==
[~2022-12-09] VITALS: Ht 165.1 cm; Wt 68.0 kg
[2022-12-09 12:44] VITALS: BP 133/79
[2022-12-09 14:45] VITALS: BP 136/75
== END 2022-12-09 15:00 | disposition home or self-care (01) ==
LOC: M LDO 12:13
PROVIDERS: ATTEND Specialist
DX: O99.513 Diseases of the respiratory system complicating pregnancy, third trimester (principal); J06.9 Acute upper respiratory infection, unspecified; O09.513 Supervision of elderly primigravida, third trimester; Z3A.33 33 weeks gestation of pregnancy

== ENCOUNTER 2022-12-12 21:12 | Inpatient (IN) | payer OTHER ==
[~2022-12-12] VITALS: Ht 165.1 cm; Wt 69.0 kg
[2022-12-12 22:48] LABS: HEMATOCRIT 33.8 % (36.0-47.0); HEMOGLOBIN 11.1 g/dl (12.0-15.5); MEAN CORPUSCULAR HEMOGLOBIN 30.3 pg (27.0-33.0); MEAN CORPUSCULAR HGB CONC 32.8 g/dl (32.0-36.5); MEAN CORPUSCULAR VOLUME 92.3 fl (80.0-96.0); PLATELET COUNT, AUTOMATED 214 10^3/uL (150-450); RED BLOOD COUNT 3.66 10^6/uL (4.00-5.40); WHITE BLOOD COUNT 15.5 10^3/uL (4.0-10.0)
[2022-12-12 23:09] LABS: TOTAL PROTEIN,RANDOM URINE 32.5 MG/DL (0.0-14.0)
[2022-12-12 23:11] LABS: URIC ACID 5.1 MG/DL (3.1-7.8)
[2022-12-12] MEDS ORDERED: PENICILLIN G POTASSIUM 5 MU IV 5 MU in D5W MINI-BAG PLUS 100 ML IV STA (23:12)
[2022-12-12 23:13] LABS: LDH LACTATE DEHYDROGENASE 248 U/L (120-246)
[2022-12-12 23:14] LABS: ALT/SGPT 13 U/L (7.0-40); AST/SGOT 22 U/L (<34); BILIRUBIN,TOTAL 0.3 MG/DL (0.3-1.2); CREATININE FOR GFR 0.62 MG/DL (0.55-1.30); CREATININE,RANDOM URINE 189.3 MG/DL; GLOMERULAR FILTRATION RATE > 60.0 (>60)
[2022-12-12] MEDS ORDERED: LABETALOL 100MG/20ML VIAL IV ONE (23:15)
[2022-12-12] MEDS ORDERED: CARBOPROST TROMETHAMINE 250 MCG/ML AMP IM PRN (23:15)
[2022-12-12] MEDS ORDERED: LIDOCAINE 1% MDV 20ML VIAL INFIL PRN (23:15)
[2022-12-12] MEDS ORDERED: OXYTOCIN DRIP 30 UNITS in IV 1 EA IV PRN (23:15)
[2022-12-12] MEDS ORDERED: TRANEXAMIC ACID INJection 1,000 MG in NS 100 ML IV PRN (23:15)
[2022-12-12] MEDS ORDERED: BETAMETHASONE SOLUSPAN 6MG/ML 5ML VIAL IM SCH (23:15)
[2022-12-12 23:24] VITALS: BP 161/85
[2022-12-12] MEDS: LR 1,000 ML IV SCH (23:59)
[2022-12-13] VITALS (28 sets, daily range): BP systolic 126–153; BP diastolic 65–95
[2022-12-13] MEDS ORDERED: FENTANYL 2MCG/ML ROPIVACAINE 0.2% IN 0.9% NACL 100ML IVBAG As Ordered ONE (00:04)
[2022-12-13] MEDS ORDERED: EPIDURAL/PCA KEYS XX PRN (00:35)
[2022-12-13] MEDS ORDERED: LR 500 ML IV PRN (00:35)
[2022-12-13] MEDS ORDERED: ONDANSETRON 4MG 2ML VIAL IV PRN (00:35)
[2022-12-13] MEDS ORDERED: diphenhydrAMINE 50MG/ML VIAL IV PRN (00:35)
[2022-12-13] MEDS ORDERED: NALOXONE INJ 0.4MG/1ML VIAL IV PRN (00:35)
[2022-12-13] MEDS ORDERED: ePHEDrine SULFATE 25 MG/5 ML(5MG/ML) SYRINGE IVP PRN (00:35)
[2022-12-13] MEDS ORDERED: MAG Sulf (L&D) 4 GM/100 ML 4 GM in IV 1 EA IV ONE (01:00)
[2022-12-13] MEDS: FENTANYL/ROPIVACAINE/NACL BAG 100 ML EPIDURAL SCH ×2 (01:00→08:01)
[2022-12-13] MEDS: MAG Sulf (OBGYN) 20GM/500ML 20,000 MG in IV 1 EA IV SCH ×2 (01:21→11:19)
[2022-12-13] MEDS: PEN G POT 3,000,000 UNIT/50 ML 3,000,000 UNIT in IV 1 EA IV SCH ×5 (04:00→20:00)
[2022-12-13] MEDS: LR 1,000 ML IV SCH ×2 (06:06→13:55)
[2022-12-13] MEDS: VENLAFAXINE **XR** 75MG CAPSULE PO SCH (08:57)
[2022-12-13] MEDS ORDERED: BETAMETHASONE SOLUSPAN 6MG/ML 5ML VIAL IM ONE (11:15)
[2022-12-13] MEDS ORDERED: ACETAMINOPHEN 500 MG TAB PO ONE (11:40)
[2022-12-13] MEDS ORDERED: OXYTOCIN DRIP 30 UNITS in IV 1 EA IV SCH ×2 (14:00→16:00)
[2022-12-13 15:56] LABS: CORD GAS ABE A -10.2; CORD GAS ABE V -7.8; CORD GAS HCO3 V 16.3 MEQ/L; CORD GAS O2 SAT A 59.3 %; CORD GAS O2 SAT V 88.8 %; CORD GAS PCO2 A 48.3 mmHg; CORD GAS PCO2 V 29.7 mmHg; CORD GAS PH A 7.188 UNITS; CORD GAS PH V 7.356 UNITS; CORD GAS PO2 A 28.1 mmHg; CORD GAS PO2 V 43.4 mmHg; CORD GAS SBC A 15.7 MEQ/L; CORD GAS SBC V 18.1 MEQ/L; CORD GAS TCO2 A 19.4 MEQ/L; CORD GAS TCO2 V 17.2 MEQ/L
[2022-12-13] MEDS ORDERED: DOCUSATE SODIUM 100MG CAPSULE PO PRN (16:00)
[2022-12-13] MEDS ORDERED: ACETAMINOPHEN TAB 650MG DOSE (2X325MG) PO PRN (16:00)
[2022-12-13] MEDS ORDERED: LR 1,000 ML IV SCH (16:00)
[2022-12-13] MEDS ORDERED: DIBUCAINE 1% OINTMENT 30GM TOP PRN (16:00)
[2022-12-13] MEDS ORDERED: IBUPROFEN 800 MG TAB PO PRN (16:00)
[2022-12-13] MEDS ORDERED: RHOGAM 300MCG (1500IU) INJ IM SCH (16:00)
[2022-12-13] MEDS ORDERED: ACETAMINOPHEN 500 MG TAB PO PRN (16:00)
[2022-12-13] MEDS ORDERED: SLF 3 ML SYR IV PRN (18:55)
[2022-12-13] MEDS: SLF 3 ML SYR IV SCH (22:00)
[2022-12-14] MEDS: SLF 3 ML SYR IV SCH ×2 (05:47→20:18)
[2022-12-14 05:58] VITALS: BP 138/84
[2022-12-14] MEDS: PRENATAL VITAMINS CHEWABLE TABLET PO SCH (09:51)
[2022-12-14] MEDS: IBUPROFEN 600MG TAB PO PRN (09:54)
[2022-12-14] MEDS: VENLAFAXINE **XR** 75MG CAPSULE PO SCH (10:49)
[2022-12-14] MEDS ORDERED: PRENTAB9 PO (12:25)
[2022-12-14] MEDS ORDERED: FAMO1TAB11 PO (12:25)
[2022-12-14] MEDS ORDERED: HOME MED LIST COMPLETE! XX SCH (12:30)
[2022-12-14 18:00] VITALS: BP 150/84
[2022-12-14 22:00] VITALS: BP 155/86
[2022-12-15 06:00] VITALS: BP 132/63
[2022-12-15] MEDS ORDERED: MEASLES,MUMPS,RUBELLA VACCINE INJ (MMR-II) SC.IMMUN ONE (09:00)
[2022-12-15] MEDS: IBUPROFEN 600MG TAB PO PRN (09:36)
[2022-12-15] MEDS: PRENATAL VITAMINS CHEWABLE TABLET PO SCH (09:36)
[2022-12-15] MEDS: VENLAFAXINE **XR** 75MG CAPSULE PO SCH (09:37)
== END 2022-12-15 13:00 | disposition home or self-care (01) | DRG 560 ==
LOC: M LDO 21:12 → M LDI 22:29 → M OBS 12-13 17:35
PROVIDERS: ADMIT Advanced Practice Midwife; ATTEND Advanced Practice Midwife
PROC: 10E0XZZ Delivery of Products of Conception, External Approach (ICD-10-PCS; principal; 2022-12-13)
DX: O60.14X0 Preterm labor third trimester with preterm delivery third trimester, not applicable or unspecified (principal); Z37.0 Single live birth; Z3A.34 34 weeks gestation of pregnancy; O14.14 Severe pre-eclampsia complicating childbirth

== ENCOUNTER → 2023-06-30 | Outpatient (REF) | payer OTHER ==
[~2023-06-30] MED LIST changes: +FAMO1TAB11 PO; +HYDR-3713 PO; +NALT50TA4; +PRENTAB9 PO; +TRAZ-252 PO
== END ==
LOC: M SFHCWAGY 10:15
PROVIDERS: ATTEND Obstetrics & Gynecology
DX: N87.1 Moderate cervical dysplasia (principal)

== ENCOUNTER 2023-08-03 12:54 | Inpatient (IN) | payer OTHER ==
[~2023-08-03] VITALS: Ht 165.1 cm; Wt 49.9 kg
[2023-08-03] MEDS ORDERED: MED REC IN PROGRESS XX SCH (14:30)
[2023-08-03 14:40] LABS: HEMATOCRIT 40.6 % (36.0-47.0); HEMOGLOBIN 13.7 g/dl (12.0-15.5); MEAN CORPUSCULAR HEMOGLOBIN 30.6 pg (27.0-33.0); MEAN CORPUSCULAR HGB CONC 33.7 g/dl (32.0-36.5); MEAN CORPUSCULAR VOLUME 90.8 fl (80.0-96.0); PLATELET COUNT, AUTOMATED 276 10^3/uL (150-450); RED BLOOD COUNT 4.47 10^6/uL (4.00-5.40); WHITE BLOOD COUNT 7.2 10^3/uL (4.0-10.0)
[2023-08-03] MEDS ORDERED: HYDR200T46 PO (14:44)
[2023-08-03] MEDS ORDERED: VENL37.598 PO (14:44)
[2023-08-03 14:58] LABS: AMPHETAMINES LEVEL URINE NEGATIVE (NEGATIVE); BARBITURATES URINE NEGATIVE (NEGATIVE); BENZODIAZEPINES URINE NEGATIVE (NEGATIVE); COCAINE METABOLITE URINE NEGATIVE (NEGATIVE); METHADONE URINE NEGATIVE (NEGATIVE); OPIATES URINE NEGATIVE (NEGATIVE); PHENCYCLIDINE URINE NEGATIVE (NEGATIVE)
[2023-08-03 15:01] LABS: CANNABINOIDS URINE POSITIVE (NEGATIVE); SALICYLATE LEVEL < 3.0 MG/DL (<30)
[2023-08-03 15:02] LABS: ALBUMIN 3.9 G/DL (3.2-5.2); ALKALINE PHOSPHATASE 83 U/L (46-116); ALT/SGPT 15 U/L (7.0-40); AST/SGOT 32 U/L (<34); BILIRUBIN,DIRECT 0.3 MG/DL (<0.4); BILIRUBIN,TOTAL 0.7 MG/DL (0.3-1.2); BLOOD UREA NITROGEN 6 MG/DL (9-23); CALCIUM LEVEL 8.9 MG/DL (8.5-10.1); CARBON DIOXIDE LEVEL 24 MMOL/L (20-31); CHLORIDE LEVEL 106 MMOL/L (98-107); CREATININE FOR GFR 0.49 MG/DL (0.55-1.30); GLOMERULAR FILTRATION RATE > 60.0 (>60); GLUCOSE, FASTING 91 MG/DL (60-100); POTASSIUM SERUM 3.6 MMOL/L (3.5-5.1); SODIUM LEVEL 143 MMOL/L (136-145); TOTAL PROTEIN 7.4 G/DL (5.7-8.2)
[2023-08-03 15:25] LABS: ETHYL ALCOHOL (ETHANOL) 0.311 % (0.000-0.010)
[2023-08-03] MEDS ORDERED: HOME MED LIST COMPLETE! XX SCH (16:15)
[2023-08-03] MEDS ORDERED: ONDANSETRON 4MG ORAL DISINTEGRATING TAB PO ONE (19:50)
[2023-08-03] MEDS: LORazepam 2 MG TAB PO PRN (20:23)
[2023-08-03] MEDS: THIAMINE 100 MG TAB PO SCH (20:23)
[2023-08-04] MEDS: LORazepam 2 MG TAB PO PRN (06:05)
[2023-08-04] MEDS: VENLAFAXINE **XR** 37.5 MG CAPSULE PO SCH (08:48)
[2023-08-04] MEDS: MULTIVITAMINS/MINERALS THERAP 1 TAB PO SCH (08:48)
[2023-08-04] MEDS: FOLIC ACID 1MG TAB PO SCH (08:49)
[2023-08-04] MEDS: HYDROXYCHLOROQUINE 200 MG TAB PO SCH (08:49)
[2023-08-04] MEDS: THIAMINE 100 MG TAB PO SCH ×2 (08:49→21:42)
[2023-08-04] MEDS: VENLAFAXINE **XR** 75MG CAPSULE PO SCH (08:49)
[2023-08-04] MEDS ORDERED: METHYLPHENIDATE 5 MG TAB PO ONE (09:00)
[2023-08-04] MEDS ORDERED: traZODone 50 MG TAB PO PRN (20:10)
[2023-08-05] MEDS: VENLAFAXINE **XR** 37.5 MG CAPSULE PO SCH (10:01)
[2023-08-05] MEDS: VENLAFAXINE **XR** 75MG CAPSULE PO SCH (10:01)
[2023-08-05] MEDS: FOLIC ACID 1MG TAB PO SCH (10:02)
[2023-08-05] MEDS: MULTIVITAMINS/MINERALS THERAP 1 TAB PO SCH (10:02)
[2023-08-05] MEDS: THIAMINE 100 MG TAB PO SCH ×2 (10:02→21:26)
[2023-08-05] MEDS: LORazepam 2 MG TAB PO PRN (10:06)
[2023-08-05] MEDS: HYDROXYCHLOROQUINE 200 MG TAB PO SCH (11:34)
[2023-08-05] MEDS ORDERED: ACETAMINOPHEN TAB 650MG DOSE (2X325MG) PO PRN (13:20)
[2023-08-05] MEDS ORDERED: MOM 30ML SUSPENSION UDC PO PRN (13:20)
[2023-08-05] MEDS ORDERED: LORazepam 2 MG TAB PO PRN (13:20)
[2023-08-05] MEDS ORDERED: MAALOX 30 ML SUSP *UDC PO PRN (13:20)
[2023-08-05] MEDS ORDERED: IBUPROFEN 400MG TAB PO PRN (13:20)
[2023-08-05] MEDS ORDERED: traZODone 50 MG TAB PO PRN (13:20)
[2023-08-05 15:31] VITALS: BP 116/79; TEMP 97.1; O2SAT 100
[2023-08-05 21:47] VITALS: BP 152/94
[2023-08-05] MEDS: diphenhydrAMINE 25MG CAP PO PRN (22:20)
[2023-08-06 06:42] VITALS: BP 139/97; TEMP 97.8; O2SAT 100
[2023-08-06 06:49] VITALS: BP 139/97
[2023-08-06] MEDS: diphenhydrAMINE 25MG CAP PO PRN (08:48)
[2023-08-06] MEDS: THIAMINE 100 MG TAB PO SCH (08:48)
[2023-08-06] MEDS ORDERED: MULTIVITAMINS/MINERALS THERAP 1 TAB PO SCH (09:00)
[2023-08-06] MEDS ORDERED: VENLAFAXINE **XR** 75MG CAPSULE PO SCH (09:00)
[2023-08-06] MEDS ORDERED: FOLIC ACID 1MG TAB PO SCH (09:00)
[2023-08-06] MEDS ORDERED: NALTREXONE 50 MG TAB PO SCH (09:00)
[2023-08-06] MEDS ORDERED: HYDROXYCHLOROQUINE 200 MG TAB PO SCH (09:00)
[2023-08-06 10:06] LABS: ALBUMIN 3.9 G/DL (3.2-5.2); ALKALINE PHOSPHATASE 85 U/L (46-116); ALT/SGPT 19 U/L (7.0-40); AST/SGOT 20 U/L (<34); BILIRUBIN,TOTAL 0.9 MG/DL (0.3-1.2); BLOOD UREA NITROGEN 8 MG/DL (9-23); CALCIUM LEVEL 9.4 MG/DL (8.5-10.1); CARBON DIOXIDE LEVEL 30 MMOL/L (20-31); CHLORIDE LEVEL 100 MMOL/L (98-107); CREATININE FOR GFR 0.66 MG/DL (0.55-1.30); GLOMERULAR FILTRATION RATE > 60.0 (>60); GLUCOSE, FASTING 86 MG/DL (60-100); POTASSIUM SERUM 3.9 MMOL/L (3.5-5.1); SODIUM LEVEL 137 MMOL/L (136-145); TOTAL PROTEIN 7.4 G/DL (5.7-8.2)
[2023-08-06] MEDS ORDERED: PILL CUTTER 1 EACH XX PRN (11:25)
[2023-08-06] MEDS ORDERED: NALT50TA4 PO (11:29)
[2023-08-06] MEDS ORDERED: VENLAFAXINE **XR** 37.5 MG CAPSULE PO ONE (12:00)
[2023-08-06] MEDS ORDERED: INFLUENZA QUADRIVALENT PF VACCINE 0.5ML SYRINGE IM.IMMUN ONE (12:00)
== END 2023-08-06 13:29 | disposition home or self-care (01) | DRG 756 ==
LOC: M ED 12:54 → M ED INP 08-05 13:49 → M PSY 08-05 15:27
PROVIDERS: ADMIT Student in an Organized Health Care Education/Training Program; ATTEND Student in an Organized Health Care Education/Training Program
DX: F41.1 Generalized anxiety disorder (principal); R45.851 Suicidal ideations; F10.10 Alcohol abuse, uncomplicated; F43.23 Adjustment disorder with mixed anxiety and depressed mood; F90.9 Attention-deficit hyperactivity disorder, unspecified type; F17.210 Nicotine dependence, cigarettes, uncomplicated; G47.00 Insomnia, unspecified; Z79.899 Other long term (current) drug therapy

== ENCOUNTER 2023-08-20 16:00 | Outpatient (RCR) | payer OTHER ==
[~2023-08-20 16:00] MED LIST changes: +HYDR200T46 PO; +NALT50TA4 PO; +VENL37.598 PO
== END 2023-09-06 ==
LOC: M OUTALCOH 16:00
PROVIDERS: ATTEND Psychiatry & Neurology Psychiatry
DX: F10.20 Alcohol dependence, uncomplicated (principal); F12.10 Cannabis abuse, uncomplicated

== ENCOUNTER → 2023-10-07 | Outpatient (RCR) | payer OTHER ==
[~2023-10-07] MED LIST changes: +ALB2.5NEB INH; +MULT-40 PO; +PRED10TA2 PO; +VIVI380I IM
== END ==
LOC: M OUTALCOH 09-09 14:48
PROVIDERS: ATTEND Psychiatry & Neurology Psychiatry
DX: F10.20 Alcohol dependence, uncomplicated (principal); F12.10 Cannabis abuse, uncomplicated

== ENCOUNTER → 2023-10-07 | Outpatient (RCR) | payer OTHER | LOC: M OUTALCOH 15:57 | PROVIDERS: ATTEND Psychiatry & Neurology Psychiatry | DX: F10.20 Alcohol dependence, uncomplicated (principal); F12.10 Cannabis abuse, uncomplicated ==

== ENCOUNTER 2023-10-20 06:20 | Day surgery (SDC) | payer OTHER ==
[~2023-10-20] VITALS: Ht 165.1 cm; Wt 51.4 kg
[2023-10-20] MEDS ORDERED: IODINE STRONG SOLN 15ML BTL As Ordered ONE (07:07)
[2023-10-20] MEDS ORDERED: SILVER NITRATE APPLICATOR (1 = QTY 10) As Ordered ONE (07:07)
[2023-10-20 07:10] LABS: HEMOGLOBIN 12.3 g/dl (12.0-15.5); MEAN CORPUSCULAR HEMOGLOBIN 32.5 pg (27.0-33.0); MEAN CORPUSCULAR HGB CONC 34.2 g/dl (32.0-36.5); PLATELET COUNT, AUTOMATED 226 10^3/uL (150-450); RED BLOOD COUNT 3.79 10^6/uL (4.00-5.40); WHITE BLOOD COUNT 7.4 10^3/uL (4.0-10.0)
[2023-10-20] MEDS ORDERED: fentaNYL 100 MCG/2 ML INJECTION As Ordered ONE (07:10)
[2023-10-20] MEDS ORDERED: LR 1,000 ML IV SCH (07:10)
[2023-10-20] MEDS ORDERED: propofoL 200 MG/20 ML VIAL As Ordered ONE (07:10)
[2023-10-20] MEDS ORDERED: ONDANSETRON 4MG 2ML VIAL As Ordered ONE (07:10)
[2023-10-20] MEDS ORDERED: ACETAMINOPHEN 1000MG 100ML IV BAG As Ordered ONE (07:10)
[2023-10-20] MEDS ORDERED: LIDOCAINE 2% 100MG/5ML SDV (FOR ANES.) As Ordered ONE (07:10)
[2023-10-20] MEDS ORDERED: MIDAZOLAM INJ 2MG/2ML VIAL As Ordered ONE (07:10)
[2023-10-20] MEDS ORDERED: KETOROLAC 60MG 2ML VIAL As Ordered ONE (07:55)
[2023-10-20] MEDS ORDERED: dexmedeTOMIDine (4MCG/ML)200MCG/50ML BTL (PRECEDEX) As Ordered ONE (08:00)
[2023-10-20] MEDS: LIDOCAINE W/EPINEPHRINE 1% 20ML VIAL As Ordered ONE (08:08)
[2023-10-20 10:00] VITALS: BP 103/57; TEMP 98.8; O2SAT 94
== END 2023-10-20 10:15 | disposition home or self-care (01) ==
LOC: M SDC 06:20
PROVIDERS: ATTEND Obstetrics & Gynecology
DX: N87.1 Moderate cervical dysplasia (principal); F41.9 Anxiety disorder, unspecified; F32.A Depression, unspecified; J45.909 Unspecified asthma, uncomplicated; Z79.51 Long term (current) use of inhaled steroids; Z79.899 Other long term (current) drug therapy; F17.218 Nicotine dependence, cigarettes, with other nicotine-induced disorders
CPT/HCPCS: 36415; 57522; 81025; 85027; 86850; 86900; 86901; 88307; J0131; J1100; J1885; J2250; J2405; J3010

== ENCOUNTER 2023-10-26 15:43 | Outpatient (RCR) | payer OTHER | END 2023-11-05 | LOC: M OUTALCOH 15:43 | PROVIDERS: ATTEND Psychiatry & Neurology Psychiatry | DX: F10.20 Alcohol dependence, uncomplicated (principal); F12.10 Cannabis abuse, uncomplicated ==

== ENCOUNTER → 2023-11-03 | Outpatient (REF) | payer OTHER | LOC: M SFHCRHEU 16:30 | PROVIDERS: ATTEND Internal Medicine Rheumatology | DX: M06.09 Rheumatoid arthritis without rheumatoid factor, multiple sites (principal); I73.00 Raynaud's syndrome without gangrene; Z72.0 Tobacco use; Z15.89 Genetic susceptibility to other disease; Z53.9 Procedure and treatment not carried out, unspecified reason ==

== ENCOUNTER 2023-11-04 08:00 | Outpatient (RCR) | payer OTHER | END 2023-11-05 | LOC: M OUTALCOH 08:00 | PROVIDERS: ATTEND Psychiatry & Neurology Child & Adolescent Psychiatry | DX: F10.20 Alcohol dependence, uncomplicated (principal); F12.10 Cannabis abuse, uncomplicated ==

== ENCOUNTER → 2023-11-30 | Outpatient (CLI) | payer OTHER | LOC: M RAD 15:37 | PROVIDERS: ATTEND Internal Medicine Rheumatology | DX: Z15.89 Genetic susceptibility to other disease (principal); M46.1 Sacroiliitis, not elsewhere classified ==

== ENCOUNTER 2023-12-28 14:34 | Outpatient (RCR) | payer OTHER | END 2024-01-05 | LOC: M OUTALCOH 14:34 | PROVIDERS: ATTEND Psychiatry & Neurology Child & Adolescent Psychiatry | DX: F10.20 Alcohol dependence, uncomplicated (principal); F12.10 Cannabis abuse, uncomplicated ==

== ENCOUNTER 2024-02-08 08:31 | Outpatient (RCR) | payer OTHER ==
[~2024-02-08 08:31] MED LIST changes: +ONDA-282 PO; -ONDA4TAB6 PO
== END 2024-03-06 ==
LOC: M OUTALCOH 08:31
PROVIDERS: ATTEND Psychiatry & Neurology Psychiatry
DX: F10.20 Alcohol dependence, uncomplicated (principal); F12.10 Cannabis abuse, uncomplicated

== ENCOUNTER → 2024-10-06 | Outpatient (CLI) | payer OTHER ==
[~2024-10-06] MED LIST changes: -CYCL5TAB PO; +CYCL5TAB4 PO; +NAPR-1405; -NAPR500T6
[2024-10-06 18:18] LABS: BASO # 0.1 10^3/uL (0.0-0.2); BASO % 0.5 % (0.0-1.0); EOS # 0.2 10^3/uL (0.0-0.5); EOS % 1.5 % (0.0-3.0); HEMATOCRIT 40.3 % (36.0-47.0); HEMOGLOBIN 13.4 g/dl (12.0-15.5); LYMPH # 1.2 10^3/uL (1.5-5.0); LYMPH % 8.3 % (24.0-44.0); MEAN CORPUSCULAR HEMOGLOBIN 32.3 pg (27.0-33.0); MEAN CORPUSCULAR HGB CONC 33.3 g/dl (32.0-36.5); MEAN CORPUSCULAR VOLUME 97.1 fl (80.0-96.0); MONO # 0.4 10^3/uL (0.0-0.8); MONO % 2.4 % (2.0-8.0); NEUTROPHILS # 12.9 10^3/uL (1.5-8.5); NEUTROPHILS % 86.8 % (36.0-66.0); PLATELET COUNT, AUTOMATED 325 10^3/uL (150-450); RED BLOOD COUNT 4.15 10^6/uL (4.00-5.40); WHITE BLOOD COUNT 14.9 10^3/uL (4.0-10.0)
[2024-10-06 18:28] LABS: ERYTHROCYTE SEDIMENTATION RATE 26 mm/hr (0-20)
[2024-10-06 18:44] LABS: ALBUMIN 4.1 G/DL (3.2-5.2); ALKALINE PHOSPHATASE 66 U/L (35-104); ALT/SGPT 9 U/L (7.0-40); AST/SGOT 12 U/L (<34); BILIRUBIN,TOTAL 0.3 MG/DL (0.3-1.2); BLOOD UREA NITROGEN 8 MG/DL (9-23); C REACTIVE PROTEIN QUANTITATIV < 0.50 MG/DL (<1.0); CALCIUM LEVEL 9.3 MG/DL (8.5-10.1); CARBON DIOXIDE LEVEL 27 MMOL/L (20-31); CHLORIDE LEVEL 105 MMOL/L (98-107); CREATININE FOR GFR 0.63 MG/DL (0.55-1.30); GLOMERULAR FILTRATION RATE > 60.0 (>60); GLUCOSE, FASTING 101 MG/DL (60-100); POTASSIUM SERUM 4.4 MMOL/L (3.5-5.1); SODIUM LEVEL 141 MMOL/L (136-145); TOTAL PROTEIN 7.4 G/DL (5.7-8.2)
== END ==
LOC: M WUC 13:30
PROVIDERS: ATTEND Internal Medicine Rheumatology
DX: M06.09 Rheumatoid arthritis without rheumatoid factor, multiple sites (principal); I73.00 Raynaud's syndrome without gangrene; Z72.0 Tobacco use; Z15.89 Genetic susceptibility to other disease

== ENCOUNTER → 2024-12-16 | Outpatient (REF) | payer OTHER ==
[2024-12-16 17:18] LABS: BASO # 0.1 10^3/uL (0.0-0.2); BASO % 0.5 % (0.0-1.0); EOS # 0.2 10^3/uL (0.0-0.5); EOS % 1.3 % (0.0-3.0); HEMATOCRIT 35.4 % (36.0-47.0); HEMOGLOBIN 11.8 g/dl (12.0-15.5); LYMPH # 2.2 10^3/uL (1.5-5.0); LYMPH % 16.4 % (24.0-44.0); MEAN CORPUSCULAR HEMOGLOBIN 31.8 pg (27.0-33.0); MEAN CORPUSCULAR HGB CONC 33.3 g/dl (32.0-36.5); MEAN CORPUSCULAR VOLUME 95.4 fl (80.0-96.0); MONO # 0.6 10^3/uL (0.0-0.8); MONO % 4.6 % (2.0-8.0); NEUTROPHILS # 10.2 10^3/uL (1.5-8.5); NEUTROPHILS % 76.8 % (36.0-66.0); PLATELET COUNT, AUTOMATED 425 10^3/uL (150-450); RED BLOOD COUNT 3.71 10^6/uL (4.00-5.40); WHITE BLOOD COUNT 13.3 10^3/uL (4.0-10.0)
[2024-12-16 17:24] LABS: ERYTHROCYTE SEDIMENTATION RATE 39 mm/hr (0-20)
[2024-12-16 17:43] LABS: ALKALINE PHOSPHATASE 85 U/L (35-104); ALT/SGPT 28 U/L (7.0-40); AST/SGOT 19 U/L (<34); BILIRUBIN,TOTAL 0.4 MG/DL (0.3-1.2); BLOOD UREA NITROGEN 9 MG/DL (9-23); C REACTIVE PROTEIN QUANTITATIV 0.53 MG/DL (<1.0); CALCIUM LEVEL 9.4 MG/DL (8.5-10.1); CARBON DIOXIDE LEVEL 28 MMOL/L (20-31); CHLORIDE LEVEL 102 MMOL/L (98-107); CREATININE FOR GFR 0.67 MG/DL (0.55-1.30); GLOMERULAR FILTRATION RATE > 90.0 (>60); GLUCOSE, FASTING 76 MG/DL (60-100); POTASSIUM SERUM 3.9 MMOL/L (3.5-5.1); SODIUM LEVEL 140 MMOL/L (136-145); TOTAL PROTEIN 7.3 G/DL (5.7-8.2)
== END ==
LOC: M LABWUC 16:37
PROVIDERS: ATTEND Internal Medicine Rheumatology
DX: M06.09 Rheumatoid arthritis without rheumatoid factor, multiple sites (principal); I73.00 Raynaud's syndrome without gangrene; Z72.0 Tobacco use; Z15.89 Genetic susceptibility to other disease

== ENCOUNTER → 2024-12-27 | Outpatient (REF) | payer OTHER ==
[2024-12-27 19:04] LABS: PERCENT SATURATION 21.1 % (13.2-45.0)
[2024-12-27 19:06] LABS: FERRITIN 19.3 NG/ML (7.3-270.7)
[2024-12-27 19:13] LABS: FOLATE 20.4 NG/ML (>5.4)
== END ==
LOC: M LABWUC 17:13
PROVIDERS: ATTEND Physician Assistant Medical
DX: D64.9 Anemia, unspecified (principal)

== ENCOUNTER → 2025-04-27 | Outpatient (CLI) | payer OTHER ==
[2025-04-27 18:07] LABS: ALT/SGPT 79 U/L (7.0-40); AST/SGOT 63 U/L (<34); C REACTIVE PROTEIN QUANTITATIV < 0.50 MG/DL (<1.0); CALCIUM LEVEL 8.9 MG/DL (8.5-10.1); CARBON DIOXIDE LEVEL 27 MMOL/L (20-31); CHLORIDE LEVEL 103 MMOL/L (98-107); CREATININE FOR GFR 0.69 MG/DL (0.55-1.30); GLOMERULAR FILTRATION RATE > 90.0 (>60); POTASSIUM SERUM 3.8 MMOL/L (3.5-5.1); SODIUM LEVEL 141 MMOL/L (136-145)
[2025-04-27 18:14] LABS: BASO # 0.1 10^3/uL (0.0-0.2); BASO % 0.7 % (0.0-1.0); EOS # 0.2 10^3/uL (0.0-0.5); EOS % 2.0 % (0.0-3.0); LYMPH # 1.2 10^3/uL (1.5-5.0); LYMPH % 15.3 % (24.0-44.0); MONO # 0.7 10^3/uL (0.0-0.8); MONO % 9.3 % (2.0-8.0); NEUTROPHILS # 5.5 10^3/uL (1.5-8.5); NEUTROPHILS % 72.2 % (36.0-66.0); PLATELET COUNT, AUTOMATED 216 10^3/uL (150-450)
[2025-04-27 18:25] LABS: ERYTHROCYTE SEDIMENTATION RATE 13 mm/hr (0-20)
== END ==
LOC: M WUC 13:57
PROVIDERS: ATTEND Internal Medicine Rheumatology
DX: M06.09 Rheumatoid arthritis without rheumatoid factor, multiple sites (principal); I73.00 Raynaud's syndrome without gangrene; Z15.89 Genetic susceptibility to other disease; Z72.0 Tobacco use